=== PATIENT | male | born 1995 | race Caucasian/White ===

== ENCOUNTER 2021-09-24 22:02 | Emergency (ER) | payer OTHER ==
[2021-09-24 22:32] VITALS: BP 112/69; PULSE 60; TEMP 98.9; BMI 21.5
[2021-09-24] MEDS ORDERED: DIPHTH,PERTUSS(ACELL),TET 0.5 ML DISP.SYRIN IM ONE ×2 (22:32→22:53)
[2021-09-25 13:24] LABS: SYPHILIS W/ RPR CONF NON-REACTIVE (NONREACTIVE)
[2021-09-25 13:51] LABS: HIV INTERPRETATION NEGATIVE (NEGATIVE)
== END 2021-09-24 23:00 | disposition home or self-care (01) ==
LOC: JER 22:02
PROC: 3E0234Z Introduction of Serum, Toxoid and Vaccine into Muscle, Percutaneous Approach (ICD-10-PCS; principal; 2021-09-24)
DX: S61.432A Puncture wound without foreign body of left hand, initial encounter (principal); W46.1XXA Contact with contaminated hypodermic needle, initial encounter
CPT/HCPCS: 36415; 86704; 86780; 86803; 87340; 87389; 87517; 90715; 99284-25